=== PATIENT | female | born 1990 | race Caucasian/White ===

== ENCOUNTER 2023-12-04 18:18 | Inpatient (IN) ==
[2023-12-04] MEDS ORDERED: OXYTOCIN 30 UNITS/NSS 30 UNITS/500 ML BAG IV PRN ×2 (18:33→18:35)
[2023-12-04] MEDS ORDERED: LACTATED RINGER'S 1,000 ML IV PRN (18:33)
[2023-12-04] MEDS ORDERED: ACETAMINOPHEN 325 MG TAB PO PRN (18:35)
[2023-12-04] MEDS ORDERED: bisacodyL 10 MG SUPP PR PRN (18:35)
[2023-12-04] MEDS ORDERED: HYDROCORTISONE ACETATE 25 MG SUPP PR PRN (18:35)
--- NOTE | 2023-12-04 18:46 | Delivery Summary ---
Vaginal Delivery Summary Date of Service December 04, 2023 Vaginal Delivery Summary and 1st Degree LAC Patient presented in active labor at complete cervical dilation with head . Delivery occurred before is able to make it to the room. Nurse noted single nuchal cord. A true knot was also noted in the umbilical cord. Upon presentation to the room that the was noted to be vigorous. Placenta still in place and was delivered spontaneously with gentle traction. Minimal bleeding noted after delivery. On inspection of perineum vagina cervix was noted be a small first-degree perineal laceration. This repaired with 3-0 Vicryl continuous running stitch. Needle sponge and instrument counts correct at the completion of the case. Both mother and stable in the immediate post delivery period. No complications noted and blood loss per [facility] Vaginal Delivery Charge Delivery Type Details: and 1st Degree LAC
[2023-12-04] MEDS: OXYTOCIN 10 UNITS/ML 10ML VIAL IM ONE (19:04)
[2023-12-04] MEDS: LIDOCAINE 1% LOCAL 20 ML VIAL INFIL PRN (19:04)
[2023-12-04] MEDS: IBUPROFEN 600 MG TAB PO PRN (19:06)
[2023-12-04 19:09] LABS: Hematocrit (blood only) 34.6 % (37.0-47.0); Hemoglobin 11.3 g/dl (12.0-16.0); Mean Corpuscular Hemoglobin 27.1 pg (25.0-34.0); Mean Corpuscular Hgb Conc 32.7 g/dL (32.0-36.0); Mean Platelet Volume 11.4 fL (9.4-12.4); Platelet Count 240 K/uL (130-400); RDW Coefficient of Variation 15.1 % (11.5-14.5); RDW Standard Deviation 45.7 fL (36.4-46.3); Red Blood Count 4.17 M/uL (4.20-5.40); White Blood Count 14.22 K/ul (4.8-10.8)
[2023-12-04] MEDS: oxyCODONE/ACETAMINOPHEN 5mg/325mg TAB PO PRN (20:04)
[2023-12-04] MEDS: DOCUSATE SODIUM 100 MG CAP PO SCH (21:43)
[2023-12-05] MEDS: BENZOCAINE 20% SPRY 85 APPLN/85 GM CAN EXT PRN (00:05)
[2023-12-05] MEDS: PRENATAL VITAMIN 1 TAB PO SCH (07:42)
--- NOTE | 2023-12-05 07:47 | Obstetrical Progress Note ---
Date of Service December 05, 2023 Assessment & Plan (1) Encounter for assessment: Patient is PPD 1 s/p and doing well - Eating well, voiding well, ambulating well - vitals reviewed and within normal limits - pain well controlled with analgesics - OOB, ambulation, diet progression as tolerated - Blood type: B+, GBS neg, rubella equivocal - Plan to discharge tomorrow - After discharge, 6 week follow up with OB visit type: exam and care immediately after delivery Qualified Code(s): Z39.0 - Encounter for care and examination of mother immediately after delivery Subjective 33 yo post- day 1 s/p Ambulation: ambulating normally Voiding: no voiding problems Passing Gas:: Yes Diet Tolerance:: regular diet Lochia:: Small Feeding Type:: breast feeding Current Pain Level: 2/10, increased tenderness when breast feeding Resting comfortably this AM in NAD. Denies MARINA, CP, SOB, N/V/D, LE pain/swelling. Results & Data Vital Signs (Past 12 Hours) Vital Signs Temp Pulse Pulse Resp BP BP Pulse Ox 12/05/23 07:34 36.6 C 66 16 107/64 97 12/05/23 04:08 36.3 C L 66 16 116/70 98 12/04/23 23:38 36.7 C 66 18 129/77 97 12/04/23 21:30 12/04/23 20:42 73 12/04/23 20:42 121/60 12/04/23 20:30 18 12/04/23 20:27 71 12/04/23 20:27 124/61 12/04/23 20:12 75 12/04/23 20:12 122/58 L 12/04/23 20:00 20 12/04/23 19:57 71 12/04/23 19:57 124/59 L O2 Del Method 12/05/23 07:34 Room Air 12/05/23 04:08 Room Air 12/04/23 23:38 Room Air 12/04/23 21:30 Room Air 12/04/23 20:42 12/04/23 20:42 12/04/23 20:30 12/04/23 20:27 12/04/23 20:27 12/04/23 20:12 12/04/23 20:12 12/04/23 20:00 12/04/23 19:57 12/04/23 19:57 Resident Activity Tracking Resident Involvement: Resident Care Provided Care Provided: OB Delivery
--- NOTE | 2023-12-05 10:26 | Obstetrical Progress Note ---
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 having cramping -helped by ibuprophen discussion done with [place] rehabilitation physician Review of Systems All systems reviewed & are unremarkable except as noted in HPI & below Physical Exam Constitutional WD/WN, vitals as above Psychiatric A+Ox3, euthymic affect Genitourinary OB Exam Abdomen: + fundal height Fundus: + firm and + relation to umbilicus (1 below U) Results & Data Vital Signs (Past 12 Hours) Vital Signs Temp Pulse Resp BP Pulse Ox O2 Del Method 12/05/23 07:34 97.9 F 66 16 107/64 97 Room Air 12/05/23 04:08 97.3 F L 66 16 116/70 98 Room Air 12/04/23 23:38 98.1 F 66 18 129/77 97 Room Air
[2023-12-05] MEDS: DIPHTHER/TETAN/PERTUS Vaccine (Tdap, Adol/Adult) 0.5mL IM ONE (16:44)
[2023-12-05] MEDS ORDERED: bisacodyL 5 MG TABEC PO SCH (20:00)
== END 2023-12-05 19:15 | disposition home or self-care (01) | DRG 807 ==
LOC: 4S1 18:18 → 4E2 21:57